=== PATIENT | male | born 1945 | race Two or more races ===

== ENCOUNTER 2018-12-14 12:48 | Inpatient (IN) | payer MEDICARE, OTHER ==
[~2018-12-14] VITALS: Ht 175.3 cm; Wt 73.9 kg
[~2018-12-14 12:48] MED LIST: FERROUS SULFAT325 MG ORAL; METFORMIN HCL500 M1 ORAL; TICLOPIDINE HC250 MG PO
[2018-12-14 13:08] VITALS: BP 124/69
--- NOTE | 2018-12-14 13:09 | NUR ---
ED Nurse Note: Patient walked in to ER from home with a son due to LUQ abdominal pain 07/10. pt aao x4 and ambulatory. pt denied N/V/D. skin clean and intact. calm and cooperative. no acute distress noted at this moment. pt is in gown and on mortgage processing clerk.
--- NOTE | 2018-12-14 13:15 | NUR ---
ED Nurse Note: ERMD at bedside.
--- NOTE | 2018-12-14 13:21 | NUR ---
ED Nurse Note: x-ray at bedside.
[2018-12-14 13:41] LABS: EOSINOPHILS % (AUTO) 4.2 % (0.0-3.0); HEMATOCRIT 45.1 % (42.0-52.0); HEMOGLOBIN 14.7 G/DL (14.2-18.0); LYMPHOCYTES % (AUTO) 31.6 % (20.0-45.0); MEAN CORPUSCULAR VOLUME 90 FL (80-99); MONOCYTES % (AUTO) 9.4 % (1.0-10.0); NEUTROPHILS % (AUTO) 53.8 % (45.0-75.0); PLATELET COUNT 189 K/UL (150-450); RED BLOOD COUNT 4.99 M/UL (4.70-6.10); RED CELL DISTRIBUTION WIDTH 11.9 % (11.6-14.8); WHITE BLOOD COUNT 7.1 K/UL (4.8-10.8)
--- NOTE | 2018-12-14 13:47 | Emergency Room Report ---
History of Present Illness General Chief Complaint: Abdominal Pain Source: Patient, Family Member Present Illness HPI 73-year-old male past history of peripheral vascular disease, hypertension presents with left-sided chest pain, that comes and goes worsened with lying backward alleviated by moving forward, he endorses mild shortness of breath no dyspnea on exertion, chest pain is described as a mild ache, severity is mild, no nausea no vomiting no diaphoresis, no abdominal pain. Patient denies that the chest pain radiates the left arm. Patient presents for evaluation for the chest pain that is been going on for about 1 day Allergies: Coded Allergies: Shrimp (Verified Allergy, Intermediate, Itching, 03/07/15) rahs, hives, SOB Patient History Past Medical History: see triage record Reviewed Nursing Documentation: PMH: Agreed; PSxH: Agreed Nursing Documentation-PMH Hx Diabetes: Yes - Type 2 Review of Systems All Other Systems: negative except mentioned in HPI Physical Exam Vital Signs Date Time Temp Pulse Resp B/P (MAP) Pulse Ox O2 Delivery O2 Flow Rate FiO2 12/14/18 13:01 98.1 75 18 124/69 (87) 95 Room Air Sp02 EP Interpretation: reviewed, normal General Appearance: well appearing, no apparent distress, alert Head: normocephalic, atraumatic Eyes: bilateral eye PERRL, bilateral eye EOMI ENT: uvula midline, moist mucus membranes Neck: supple, thyroid normal, supple/symm/no masses Respiratory: lungs clear, no respiratory distress, no retraction, no accessory muscle use Cardiovascular #1: normal peripheral pulses, regular rate, rhythm, no edema, no gallop, no murmur Gastrointestinal: non tender, soft, no guarding, no rebound Musculoskeletal: normal inspection Neurologic: alert, oriented x3 Psychiatric: mood/affect normal Skin: no rash, warm/dry Medical Decision Making Diagnostic Impression: Primary Impression: Chest pain Qualified Codes: R07.9 - Chest pain, unspecified ER Course 73-year-old male presents with chest pain concerning for possible ACS versus pericarditis versus pneumonia Patient with negative troponin negative chest x-ray, negative EKG Patient with intermittent chest pain, will admit patient for observation versus stress test Aspirin given to patient Patient admitted to Dr. Steiner at 2:18pm Laboratory Tests Test 12/14/18 13:15 12/14/18 13:40 White Blood Count 7.1 K/UL (4.8-10.8) Red Blood Count 4.99 M/UL (4.70-6.10) Hemoglobin 14.7 G/DL (14.2-18.0) Hematocrit 45.1 % (42.0-52.0) Mean Corpuscular Volume 90 FL (80-99) Mean Corpuscular Hemoglobin 29.4 PG (27.0-31.0) Mean Corpuscular Hemoglobin Concent 32.5 G/DL (32.0-36.0) Red Cell Distribution Width 11.9 % (11.6-14.8) Platelet Count 189 K/UL (150-450) Mean Platelet Volume 6.1 FL (6.5-10.1) L Neutrophils (%) (Auto) 53.8 % (45.0-75.0) Lymphocytes (%) (Auto) 31.6 % (20.0-45.0) Monocytes (%) (Auto) 9.4 % (1.0-10.0) Eosinophils (%) (Auto) 4.2 % (0.0-3.0) H Basophils (%) (Auto) 1.0 % (0.0-2.0) Prothrombin Time 10.1 SEC (9.30-11.50) Prothrombin Time INR 0.9 (0.9-1.1) PTT 26 SEC (23-33) Sodium Level 144 MMOL/L (136-145) Potassium Level 3.9 MMOL/L (3.5-5.1) Chloride Level 108 MMOL/L (98-107) H Carbon Dioxide Level 25 MMOL/L (21-32) Anion Gap 11 mmol/L (5-15) Blood Urea Nitrogen 21 mg/dL (7-18) H Creatinine 0.9 MG/DL (0.55-1.30) Estimate Glomerular Filtration Rate mL/min (>60) Glucose Level 190 MG/DL (74-106) H Calcium Level 9.1 MG/DL (8.5-10.1) Total Bilirubin 0.2 MG/DL (0.2-1.0) Aspartate Amino Transferase (AST) 8 U/L (15-37) L Alanine Aminotransferase (ALT) 19 U/L (12-78) Alkaline Phosphatase 51 U/L (46-116) Total Creatine Kinase 132 U/L (26-308) Creatine Kinase MB 3.4 NG/ML (0.0-3.6) Creatine Kinase MB Relative Index 2.5 Troponin I 0.006 ng/mL (0.000-0.056) Pro-B-Type Natriuretic Peptide 130 pg/mL (0-125) H Total Protein 7.3 G/DL (6.4-8.2) Albumin 3.5 G/DL (3.4-5.0) Globulin 3.8 g/dL Albumin/Globulin Ratio 0.9 (1.0-2.7) L Lipase 179 U/L (73-393) Urine Opiates Screen Negative (NEGATIVE) Urine Barbiturates Screen Negative (NEGATIVE) Phencyclidine (PCP) Screen Negative (NEGATIVE) Urine Amphetamines Screen Negative (NEGATIVE) Urine Benzodiazepines Screen Negative (NEGATIVE) Urine Cocaine Screen Negative (NEGATIVE) Urine Marijuana (THC) Screen Negative (NEGATIVE) EKG Diagnostic Results EKG Time: 13:13 EP Interpretation: NSR, LAD, incomplete RBBB, QTC [address] elev Rhythm Strip Diag. Results Rhythm Strip Time: 13:55 EP Interpretation: yes Rate: 71 Rhythm: NSR, no PVC's, no ectopy Chest X-Ray Diagnostic Results Chest X-Ray Diagnostic Results : Chest X-Ray Ordered: Yes # of Views/Limited/Complete: 1 View Indication: Chest Pain EP Interpretation: Yes Interpretation: no consolidation, no effusion, no pneumothorax, no acute cardiopulmonary disease Impression: No acute disease Electronically Signed by: Jonah Ulloa MD Last Vital Signs Date Time Temp Pulse Resp B/P (MAP) Pulse Ox O2 Delivery O2 Flow Rate FiO2 12/14/18 13:08 75 18 Room Air 12/14/18 13:08 98.1 124/69 95 Disposition: ADMITTED INPATIENT Condition: Stable Jonah Ulloa MD Dec 14, 2018 13:47
[2018-12-14 13:50] LABS: ANION GAP 11 mmol/L (5-15); BLOOD UREA NITROGEN 21 mg/dL (7-18); CALCIUM 9.1 MG/DL (8.5-10.1); CARBON DIOXIDE 25 MMOL/L (21-32); CHLORIDE 108 MMOL/L (98-107); CREATININE 0.9 MG/DL (0.55-1.30); POTASSIUM 3.9 MMOL/L (3.5-5.1); SODIUM 144 MMOL/L (136-145)
[2018-12-14 13:51] LABS: INR 0.9 (0.9-1.1)
[2018-12-14 14:03] VITALS: BP 134/58
--- NOTE | 2018-12-14 14:11 | Diagnostic Imaging Report ---
EXAM: XR Chest, 1 View CLINICAL HISTORY: CP TECHNIQUE: Frontal view of the chest. COMPARISON: None FINDINGS: Hardware: None. Lungs pleura: Normal. No focal consolidation. No pleural effusion or pneumothorax. Heart mediastinum: Normal. No cardiomegaly. Soft tissues: Unremarkable. Bones: No acute fracture. Upper abdomen: Normal. IMPRESSION: No acute disease identified.
[2018-12-14 14:17] LABS: ALANINE AMINOTRANSFERASE 19 U/L (12-78); ALBUMIN 3.5 G/DL (3.4-5.0); ALBUMIN/GLOBULIN RATIO 0.9 (1.0-2.7); ALKALINE PHOSPHATASE 51 U/L (46-116); ASPARTATE AMINO TRANSFERASE 8 U/L (15-37); BILIRUBIN,TOTAL 0.2 MG/DL (0.2-1.0); CKMB 3.4 NG/ML (0.0-3.6); CREATINE KINASE 132 U/L (26-308)
[2018-12-14] MEDS ORDERED: CEPHALEXIN500 M1 ORAL (14:18)
[2018-12-14] MEDS ORDERED: NITROGLYCERIN2.5 MG PO (14:18)
--- NOTE | 2018-12-14 15:00 | NUR ---
ED Nurse Note: Patient transferred to 2E with all of his belongings. report given to Ronnie VARGAS. Endorsed all plan of care to Ronnie VARGAS.
[2018-12-14 15:13] VITALS: BP 129/72
--- NOTE | 2018-12-14 15:39 | NUR ---
NURSE NOTES: Mr Ramirez arrived from ER 1500, received report from ALICIA Trujillo . Patient aox4 with calm, cooperative affect. VSS and breathing easily on RA. Tele monitor showed NSR with 70bpm and no co chest pain. patient stated "I think the pain is in my muscles, but not sure". Left ms with Dr Hudson's service at 1545 to obtain orders. Son, at bedside with patient. Spoke with Dr Steiner on phone who said he would come to assess patient at bedside and to just place cardiac diet order now. Orders to follow after at bedside. Informed Dr Valle that patient stated he only takes metformin tid and an antibiotic tid. Oriented to floor and room. Call blair in reach, nonslip socks on, bed in lowest locked position, urinal in reach and patient verbalized understanding to call for assist if he needs restroom. Lungs clear and bowel sounds present on auscultation. Patient stated his last BM was this morning and was "normal" Addendum: 12/14/18 at 1611 by Joshua Callejas RN Bl sugar 151 on bedside fingerstick Addendum: 12/14/18 at 1857 by Joshua Callejas RN 1640: patient already ate dinner before accucheck orders placed and no insulin available at this time. Bl sugar 145--wctm and get insulin from pharm. Addendum: 12/14/18 at 1858 by Joshua Callejas RN patient and son recalled other meds patient is taking--updated Dr Steiner who put in orders to reflect home meds .
[2018-12-14] MEDS ORDERED: Heparin 25,000u/D5W 500ml 500 ML IV SCH (17:45)
[2018-12-14] MEDS ORDERED: Miralax 17gm pkt ORAL PRN (17:45)
[2018-12-14] MEDS ORDERED: Nitroglycerin Subl 0.4mg tab SL PRN (17:45)
[2018-12-14] MEDS: NovoLOG Insulin Flexpen SUBQ SCH (18:00)
--- NOTE | 2018-12-14 18:11 | History and Physical ---
History of Present Illness General Date patient seen: Dec 14, 2018 Time patient seen: 17:00 Reason for Hospitalization: chest pain Present Illness HPI Mr. Ramirez is a 73 year old [place] male with hx of DM2, "heart problem" presenting with 2 days of constant left sided chest pain. He returned from [place] 4 days ago, then 2 days ago, did some gardening. That night, he started having left sided chest pain, achy in quality (denies pressure-like), nonradiating, and worse with leaning back, better with leaning forward. He takes Dorocontin ( nitro-like med from [place]) for his chronic "chest pain," and it hasn't helped with this pain. When asked if different from his chronic "chest pain," he reports it is different. The chronic chest pain is situated more higher up and different in quality, but unable to verbalize. He reports being diagnosed with heart attack at age 26, and also had chest pain ~10 years ago, and has been on Dorocontin since. He reports having gone through testing, and was told he has coronary disease, and has been on medical therapy. Otherwise, denies any SOB, nausea, vomiting, diaphoresis, fever, chills. Of note, he was diagnosed with RLE cellulitis, and was started on Keflfex in [place], has 3 more days to go. ( history obtained with the help of son at bedside, as patient himself is Farsi- speaking mostly). Allergies: Coded Allergies: Shrimp (Verified Allergy, Intermediate, Itching, 03/07/15) rahs, hives, SOB Medication History Scheduled Cephalexin* (Cephalexin*), 500 MG ORAL EVERY 8 HOURS, (Reported) Ferrous Sulfate* (Ferrous Sulfate*), 325 MG ORAL DAILY, (Reported) Metformin Hcl* (Metformin Hcl*), 500 MG ORAL TWICE A DAY, (Reported) Ticlopidine Hcl (Ticlopidine Hcl), 250 MG PO DAILY, (Reported) Miscellaneous Medications Nitroglycerin (Nitroglycerin), 2.5 MG PO, (Reported) Patient History History Provided By: Patient, Family Member Healthcare decision maker yes Resuscitation status full code Advanced Directive on File Past Medical/Surgical History Past Medical/Surgical History: (1) Chest pain (2) HTN (hypertension) (3) Cellulitis (4) CAD (coronary artery disease) Family History Family History: Patient reports no known family medical history. Review of Systems Constitutional: Denies: no symptoms, see HPI, chills, sweats, fever, malaise, weakness, other Eye: Denies: no symptoms, see HPI, eye pain, blurred vision, tearing, double vision, nose pain, nose congestion, acuity changes, discharge, other ENT: Denies: no symptoms, see HPI, ear pain, ear discharge, nose pain, nose congestion, throat pain, throat swelling, mouth pain, hearing loss, nasal discharge, other Respiratory: Denies: no symptoms, see HPI, cough, orthopnea, shortness of breath, stridor, wheezing, FRAZIER, sputum, other Cardiovascular: Reports: see HPI, chest pain Gastrointestinal: Denies: no symptoms, see HPI, abdominal pain, constipation, diarrhea, nausea, vomiting, melena, hematemesis, other Genitourinary: Denies: no symptoms, see HPI, discharge, dysuria, frequency, hematuria, pain, retention, incontinence, urgency, vag bleed/dc, other Musculoskeletal: Denies: no symptoms, see HPI, back pain, gout, joint pain, joint swelling, muscle pain, muscle stiffness, other Skin: Denies: no symptoms, see HPI, rash, change in color, change in hair/nails , dryness, lesions, other Psychiatric: Denies: no symptoms, see HPI, prior hx, anxiety, depressed feelings, emotional problems, SI, HI, hallucinations, other Neurological: Denies: no symptoms, see HPI, headache, numbness, paresthesia, seizure, tingling, tremors, focal weakness, syncope, dizziness, other Endocrine: Denies: no symptoms, see HPI, excessive sweating, flushing, intolerance to temperature, increased thirst, increased urine, unexplained weight loss, other Hematologic/Lymphatic: Denies: no symptoms, see HPI, anemia, blood clots, easy bleeding, easy bruising, swollen glands, diathesis, other Physical Exam General Appearance: WD/WN, no apparent distress, alert Lines, tubes and drains: peripheral HEENT: normocephalic, atraumatic Neck: supple Respiratory/Chest: lungs clear, normal breath sounds, no respiratory distress, no accessory muscle use Cardiovascular/Chest: normal rate, regular rhythm, no gallop/murmur, no JVD Abdomen: normal bowel sounds, non tender, soft Extremities: normal range of motion, no edema, other - no evidence of cellulitis on RLE Neurologic: inner diameter grinder tool II-XII grossly normal, alert, oriented x 3, responsive Musculoskeletal: normal muscle bulk Last 24 Hour Vital Signs Date Time Temp Pulse Resp B/P (MAP) Pulse Ox O2 Delivery O2 Flow Rate FiO2 12/14/18 17:05 Room Air 12/14/18 17:04 70 12/14/18 15:13 97.0 71 20 129/72 (91) 98 12/14/18 15:00 98.1 77 18 134/58 98 Room Air 12/14/18 14:03 98.1 77 18 134/58 98 Room Air 12/14/18 13:08 75 18 Room Air 12/14/18 13:08 98.1 75 18 124/69 95 Room Air 12/14/18 13:01 98.1 75 18 124/69 (87) 95 Room Air Laboratory Tests Test 12/14/18 13:15 12/14/18 13:40 White Blood Count 7.1 K/UL (4.8-10.8) Red Blood Count 4.99 M/UL (4.70-6.10) Hemoglobin 14.7 G/DL (14.2-18.0) Hematocrit 45.1 % (42.0-52.0) Mean Corpuscular Volume 90 FL (80-99) Mean Corpuscular Hemoglobin 29.4 PG (27.0-31.0) Mean Corpuscular Hemoglobin Concent 32.5 G/DL (32.0-36.0) Red Cell Distribution Width 11.9 % (11.6-14.8) Platelet Count 189 K/UL (150-450) Mean Platelet Volume 6.1 FL (6.5-10.1) L Neutrophils (%) (Auto) 53.8 % (45.0-75.0) Lymphocytes (%) (Auto) 31.6 % (20.0-45.0) Monocytes (%) (Auto) 9.4 % (1.0-10.0) Eosinophils (%) (Auto) 4.2 % (0.0-3.0) H Basophils (%) (Auto) 1.0 % (0.0-2.0) Prothrombin Time 10.1 SEC (9.30-11.50) Prothromb Time International Ratio 0.9 (0.9-1.1) Activated Partial Thromboplast Time 26 SEC (23-33) Sodium Level 144 MMOL/L (136-145) Potassium Level 3.9 MMOL/L (3.5-5.1) Chloride Level 108 MMOL/L (98-107) H Carbon Dioxide Level 25 MMOL/L (21-32) Anion Gap 11 mmol/L (5-15) Blood Urea Nitrogen 21 mg/dL (7-18) H Creatinine 0.9 MG/DL (0.55-1.30) Estimat Glomerular Filtration Rate mL/min (>60) Glucose Level 190 MG/DL (74-106) H Calcium Level 9.1 MG/DL (8.5-10.1) Total Bilirubin 0.2 MG/DL (0.2-1.0) Aspartate Amino Transf (AST/SGOT) 8 U/L (15-37) L Alanine Aminotransferase (ALT/SGPT) 19 U/L (12-78) Alkaline Phosphatase 51 U/L (46-116) Total Creatine Kinase 132 U/L (26-308) Creatine Kinase MB 3.4 NG/ML (0.0-3.6) Creatine Kinase MB Relative Index 2.5 Troponin I 0.006 ng/mL (0.000-0.056) Pro-B-Type Natriuretic Peptide 130 pg/mL (0-125) H Total Protein 7.3 G/DL (6.4-8.2) Albumin 3.5 G/DL (3.4-5.0) Globulin 3.8 g/dL Albumin/Globulin Ratio 0.9 (1.0-2.7) L Lipase 179 U/L (73-393) Urine Opiates Screen Negative (NEGATIVE) Urine Barbiturates Screen Negative (NEGATIVE) Phencyclidine (PCP) Screen Negative (NEGATIVE) Urine Amphetamines Screen Negative (NEGATIVE) Urine Benzodiazepines Screen Negative (NEGATIVE) Urine Cocaine Screen Negative (NEGATIVE) Urine Marijuana (THC) Screen Negative (NEGATIVE) Height (Feet): 5 Height (Inches): 9.00 Weight (Pounds): 163 Objective Narrative EKG personally reviewed. Shows LAD, NSR, without any ST/T changes. Incomplete LBBB. Assessment/Plan Problem List: (1) Chest pain ICD Codes: R07.9 - Chest pain, unspecified SNOMED: 38143618 Qualifiers: Qualified Codes: R07.9 - Chest pain, unspecified (2) HTN (hypertension) ICD Codes: I10 - Essential (primary) hypertension SNOMED: 47972809 (3) Cellulitis ICD Codes: L03.90 - Cellulitis, unspecified SNOMED: 070338858 (4) CAD (coronary artery disease) ICD Codes: I25.10 - Atherosclerotic heart disease of [place] coronary artery without angina pectoris SNOMED: 20698871 Status: stable Assessment/Plan: Mr. Ramirez is a 73 year old male with hx of HTN, reported CAD, DM2, recent RLE cellulitis, presenting with constant left sided chest pain x 2 days. #CHEST PAIN #?CAD History of CAD,and reportedly on medical therapy, but not only appears to be on Atenolol and nitro. Per patient, current episode of chest pain is different from his usual chest pain. Given 2 days of constant chest pain, variable with position, normal EKG, and negative troponin x1, doubt true ACS. However, given reported hx of CAD in the past and age, will admit for observation for serial troponin checks and further evaluation. -Admit to obs with telemetry. -s/p aspirin in the ED. Continue ASA 81. -Check troponin twice more. at 7:15PM then 1:15 AM. -Continue home atenolol 25 mg daily. -nitro prn for chest pain. -Cardiology consult in the AM for further evaluation. -Cardiac diet for now. NPO after MN for possible procedure. #HTN Takes Atenolol 25 mg daily. -Continue. #RLE CELLULITIS Reportedly had RLE cellulitis and was started on Keflfex in [place]. Needs 3 more days of treatment. Exam normal now. -Continue Keflex x 3 days (12/14 - 12/16) -Continue to monitor. #DM2. -Insulin sliding scale. -Takes metformin at home. Hold inhouse. -Check a1c tmrw AM. Alvaro Steiner M.D. Dec 14, 2018 18:11
--- NOTE | 2018-12-14 19:20 | NUR ---
NURSE NOTES: Got report from Goldy VARGAS. Pt in stable condition. Denies any pain. No s/s of distress or discomfort noted. Pt resting in bed comfortably. Bed in low and locked position, call light within reach, bedside table within reach. Continue to monitor.
[2018-12-14 20:00] VITALS: BP 129/64
[2018-12-15] VITALS: BP 135/77
[2018-12-15 04:00] VITALS: BP 105/60
[2018-12-15 05:05] LABS: EOSINOPHILS % (AUTO) 4.3 % (0.0-3.0); HEMATOCRIT 41.3 % (42.0-52.0); HEMOGLOBIN 13.8 G/DL (14.2-18.0); LYMPHOCYTES % (AUTO) 37.2 % (20.0-45.0); MEAN CORPUSCULAR VOLUME 90 FL (80-99); MONOCYTES % (AUTO) 8.6 % (1.0-10.0); NEUTROPHILS % (AUTO) 48.8 % (45.0-75.0); PLATELET COUNT 151 K/UL (150-450); RED CELL DISTRIBUTION WIDTH 11.5 % (11.6-14.8); WHITE BLOOD COUNT 5.1 K/UL (4.8-10.8)
[2018-12-15 05:45] LABS: ANION GAP 8 mmol/L (5-15); BLOOD UREA NITROGEN 16 mg/dL (7-18); CALCIUM 8.4 MG/DL (8.5-10.1); CARBON DIOXIDE 25 MMOL/L (21-32); CHLORIDE 109 MMOL/L (98-107); CHOLESTEROL 135 MG/DL (< 200); CREATININE 0.9 MG/DL (0.55-1.30); HDL CHOLESTEROL 41 MG/DL (40-60); POTASSIUM 4.3 MMOL/L (3.5-5.1); SODIUM 142 MMOL/L (136-145); TRIGLYCERIDES 45 MG/DL (30-150)
[2018-12-15] MEDS: NovoLOG Insulin Flexpen SUBQ SCH ×2 (06:00)
--- NOTE | 2018-12-15 07:00 | NUR ---
HAND-OFF: Report given to Jasper VARGAS.
[2018-12-15] MEDS ORDERED: Heparin 1000 units/ml 1ml Vial INJ ONE (08:00)
[2018-12-15] MEDS ORDERED: Heparin 25,000u/D5W 500ml 500 ML IV SCH ×2 (08:00→08:30)
[2018-12-15] MEDS ORDERED: Heparin 5000 units/ml inj IV SCH (08:30)
[2018-12-15] MEDS ORDERED: Heparin 5000 units/ml inj IV ONE (08:30)
[2018-12-15] MEDS ORDERED: Aspirin Baby 81mg ORAL SCH (09:00)
--- NOTE | 2018-12-15 10:28 | NUR ---
NURSE NOTES: Pt signing out AMA. Son is at bedside with Dr Steiner, explained to pt and son importance of going straight to [facility] because pt need further testing and possible tx. IV access, patient monitor and ID band removed. Pt left with all belongings in the company of his son, breathing easily on room air.
--- NOTE | 2018-12-15 10:58 | Discharge Summary ---
Discharge Summary Hospital Course Date of Admission Dec 14, 2018 at 14:36 Date of Discharge 12/15/2018 Admitting Diagnosis CHEST PAIN Reason for Hospitalization: CHEST PAIN HPI Mr. Ramirez is a 73 year old [place] male with hx of DM2, "heart problem" presenting with 2 days of constant left sided chest pain. He returned from [place] 4 days ago, then 2 days ago, did some gardening. That night, he started having left sided chest pain, achy in quality (denies pressure-like), nonradiating, and worse with leaning back, better with leaning forward. He takes Dorocontin ( nitro-like med from [place]) for his chronic "chest pain," and it hasn't helped with this pain. When asked if different from his chronic "chest pain," he reports it is different. The chronic chest pain is situated more higher up and different in quality, but unable to verbalize. He reports being diagnosed with heart attack at age 26, and also had chest pain ~10 years ago, and has been on Dorocontin since. He reports having gone through testing, and was told he has coronary disease, and has been on medical therapy. Otherwise, denies any SOB, nausea, vomiting, diaphoresis, fever, chills. Of note, he was diagnosed with RLE cellulitis, and was started on Keflfex in [place], has 3 more days to go. ( history obtained with the help of son at bedside, as patient himself is Farsi- speaking mostly). Procedures none Hospital Course He was admitted for chest pain as stated in HPI above. Initial troponin level was negative (0.06); however, it was elevated (0.16) upon subsequent check. He continued to complain of dull, achy chest pain. Cardiology was notified and recommended transfer to [facility] for cardiac cath. Transfer center was called; however, given the wait time, the family decided to leave AMA and take the patient to [facility] where he usually gets his care. Importance of taking him to the hospital [facility] was communicated and they expressed understanding. Discharge Condition Upon Discharge: stable, unchanged Discharge Disposition Patient left AMA Discharge Diagnoses: (1) ACS (acute coronary syndrome) (2) Chest pain (3) HTN (hypertension) (4) Cellulitis (5) CAD (coronary artery disease) Alvaro Steiner M.D. Dec 15, 2018 10:58
--- NOTE | 2018-12-16 11:18 | Cardiology Report ---
APPROVED REPORT EKG Measurement Heart [id number] Normal sinus rhythm Left axis deviation Incomplete right bundle branch block Abnormal ECG
== END 2018-12-15 10:45 | disposition left against medical advice (07) | DRG 311 ==
LOC: EMR 13:51 → EDBEDREQ 14:17 → 2E 14:36
DX: I24.9 Acute ischemic heart disease, unspecified (principal); L03.115 Cellulitis of right lower limb; I25.10 Atherosclerotic heart disease of native coronary artery without angina pectoris; I10 Essential (primary) hypertension; E11.9 Type 2 diabetes mellitus without complications; Z79.84 Long term (current) use of oral hypoglycemic drugs
CPT/HCPCS: 36415; 71045; 80048; 80053; 80061; 80307; 82550; 82553; 82962; 83036; 83690; 83880; 84484; 85025; 85610; 85730; 93005; 96360; 99285; J1815